=== PATIENT | male | born 1950 | race Caucasian/White ===

== ENCOUNTER 2019-03-27 09:45 | Emergency (ER) | payer MEDICARE, OTHER ==
[~2019-03-27] VITALS: Ht 175.3 cm; Wt 80.3 kg
[2019-03-27 10:15] LABS: BASO # 0.1 10^3/uL (0.0-0.2); BASO % 0.7 % (0.0-1.0); EOS # 0.1 10^3/uL (0.0-0.5); EOS % 1.3 % (0.0-3.0); HEMATOCRIT 44.1 % (42.0-52.0); HEMOGLOBIN 15.3 g/dl (13.5-17.5); LYMPH # 1.6 10^3/uL (1.5-5.0); LYMPH % 23.8 % (24.0-44.0); MEAN CORPUSCULAR HGB CONC 34.7 g/dl (32.0-36.5); MEAN CORPUSCULAR VOLUME 95.2 fl (80.0-96.0); MONO # 0.6 10^3/uL (0.0-0.8); MONO % 8.2 % (0.0-5.0); NEUTROPHILS # 4.4 10^3/uL (1.5-8.5); NEUTROPHILS % 65.7 % (36.0-66.0); PLATELET COUNT, AUTOMATED 301 10^3/uL (150-450); RED BLOOD COUNT 4.63 10^6/uL (4.30-6.10); WHITE BLOOD COUNT 6.7 10^3/uL (4.0-10.0)
[2019-03-27 10:25] LABS: INR 0.98; PROTHROMBIN TIME 12.7 SECONDS (11.8-14.0)
[2019-03-27] MEDS ORDERED: LISI2.5T76 PO (10:25)
[2019-03-27] MEDS ORDERED: DOXY1CAP60 PO (10:25)
[2019-03-27] MEDS ORDERED: LEVO25TA5 PO (10:25)
[2019-03-27 10:26] LABS: PARTIAL THROMBOPLASTIN TIME 29.2 SECONDS (25.0-38.4)
[2019-03-27] MEDS ORDERED: SIMV10TA2 PO (10:26)
--- NOTE | 2019-03-27 10:27 | REP ---
Single view chest: 03/27/2019. Indication: Chest pain. Comparison: None. Findings: The lungs are clear. There is no pleural effusion or pneumothorax. The cardiomediastinal silhouette is unremarkable. Impression: Clear lungs. Electronically Signed by Yobani Gomez DO 03/27/2019 10:18 A
--- NOTE | 2019-03-27 10:29 | ECGEPIP ---
[facility] - ED Test Date: 2019-03-27 Pat Name: HAMLET LEGGETT Department: Room: - Gender: Male [employer] Operator: dl : 1950 Requested By: Myles Glover Order Number: [id number] Reading MD: Nona Avelar Measurements Intervals Forbes Rate: 73 P: 79 DE: 157 QRS: 77 QRSD: 110 T: 65 QT: 364 QTc: 403 Interpretive Statements SINUS RHYTHM NO PRIOR Electronically Signed on 03-27-2019 10:29:07 EDT by Nona Avelar
--- NOTE | 2019-03-27 10:37 | REP ---
CT brain: 03/27/2019. Indication: Dizziness. Comparison: None. Findings: There is no acute intracranial hemorrhage, acute cortical infarction, mass effect, hydrocephalus or significant fluid within the visualized paranasal sinuses/mastoid air cells. Impression: No acute intracranial process. Electronically Signed by Yobani Gomez DO 03/27/2019 10:29 A
[2019-03-27 10:49] LABS: ALBUMIN 4.1 GM/DL (3.2-5.2); ALT/SGPT 20 U/L (12-78); BILIRUBIN,DIRECT 0.2 MG/DL (0.0-0.2); BILIRUBIN,TOTAL 0.9 MG/DL (0.2-1.0); BLOOD UREA NITROGEN 20 MG/DL (7-18); CALCIUM LEVEL 9.5 MG/DL (8.8-10.2); CARBON DIOXIDE LEVEL 28 MEQ/L (21-32); CHLORIDE LEVEL 106 MEQ/L (98-107); CK-MB VALUE MASS 3.4 NG/ML (<3.6); CPK CREATINE PHOSPHOKINASE 229 U/L (39-308); CREATININE FOR GFR 1.06 MG/DL (0.70-1.30); FREE T4 1.61 NG/DL (0.76-1.46); GLOMERULAR FILTRATION RATE > 60.0 (>49); GLUCOSE, FASTING 107 MG/DL (70-100); LIPASE 69 U/L (73-393); MB/CK RELATIVE INDEX 1.48 (< OR =4); NT-PRO BNP 401 PG/ML (<125); POTASSIUM SERUM 4.2 MEQ/L (3.5-5.1); SODIUM LEVEL 140 MEQ/L (136-145); THYROID STIMULATING HORMONE 0.406 uIU/ML (0.358-3.740); TOTAL PROTEIN 7.5 GM/DL (6.4-8.2); TROPONIN I < 0.02 NG/ML (< 0.10)
[2019-03-27] MEDS ORDERED: ISOVUE-370 76% 100ML VIAL (Q9967) As Ordered ONE (11:04)
[2019-03-27] MEDS ORDERED: SILD100T PO (11:38)
[2019-03-27] MEDS ORDERED: ZOCO80TA PO (11:38)
[2019-03-27] MEDS ORDERED: LEVO50TA5 PO (11:38)
[2019-03-27] MEDS ORDERED: DOXA1TAB41 PO (11:38)
[2019-03-27] MEDS ORDERED: LISI-538 PO (11:38)
--- NOTE | 2019-03-27 12:04 | REP ---
CT ANGIOGRAM OF THE CHEST: TECHNIQUE: Axial contrast enhanced images from the thoracic inlet to the upper abdomen using 100 mL Isovue 370 intravenous contrast material with multiplanar reformations. There is no CT evidence of pulmonary embolism. There is no thoracic aortic aneurysm or dissection. There is moderate atherosclerotic calcification of the thoracic aorta. The heart is not enlarged. There is no mediastinal, hilar, or chest wall lymphadenopathy. There is no pleural or pericardial effusion. No acute infiltrate is seen in either lung. There are diffuse degenerative changes of the spine. IMPRESSION: No evidence of pulmonary embolism or thoracic aortic dissection. Electronically Signed by Phillip Murray MD 03/28/2019 11:46 A
[2019-03-27 13:00] VITALS: BP 123/60
== END 2019-03-27 13:11 | disposition short-term general hospital (02) ==
LOC: M ED 09:45
DX: I20.0 Unstable angina (principal); I10 Essential (primary) hypertension; E78.5 Hyperlipidemia, unspecified; E07.9 Disorder of thyroid, unspecified; Z79.899 Other long term (current) drug therapy; Z79.890 Hormone replacement therapy; Z88.5 Allergy status to narcotic agent; Z88.8 Allergy status to other drugs, medicaments and biological substances; Z87.891 Personal history of nicotine dependence
CPT/HCPCS: 36415; 70450; 71045; 71275; 80048; 80076; 82550; 82553; 83690; 83880; 84439; 84443; 84484; 85025; 85610; 85730; 93005; 93041; 94760; 99291; Q9967

== ENCOUNTER → 2019-12-05 | Outpatient (REF) | payer MEDICARE, OTHER ==
[~2019-12-05] MED LIST: DOXA1TAB41 PO; DOXY1CAP60 PO; LEVO25TA5 PO; LEVO50TA5 PO; LISI-1034 PO; LISI-538 PO; SILD100T PO; SIMV10TA21 PO; ZOCO80TA PO
== END ==
LOC: M LAB REF 10:04
PROVIDERS: ATTEND Dermatology
DX: L90.5 Scar conditions and fibrosis of skin (principal); L57.8 Other skin changes due to chronic exposure to nonionizing radiation

== ENCOUNTER 2024-01-11 07:02 | Day surgery (SDC) | payer MEDICARE, OTHER ==
[~2024-01-11] VITALS: Ht 157.5 cm; Wt 73.0 kg
[~2024-01-11 07:02] MED LIST changes: +AMLO10TA PO; -DOXY1CAP60 PO; +DOXY50CA35 PO; +FURO20TA2 PO; -LISI-1034 PO; -LISI-538 PO; +LISI2.5T8 PO; +LISI20TA33 PO; +LISI40TA4 PO; +PRAV40TA2 PO; +SPIR50TA4 PO; +SYNT100T PO; +SYNT25TA PO
[2024-01-11] MEDS: NS 1,000 ML IV ONE (07:30)
[2024-01-11] MEDS ORDERED: propofoL 200 MG/20 ML VIAL As Ordered ONE (08:22)
[2024-01-11] MEDS ORDERED: ePHEDrine SULFATE 25 MG/5 ML(5MG/ML) SYRINGE As Ordered ONE (08:38)
[2024-01-11 08:55] VITALS: TEMP 96.5
[2024-01-11 09:15] VITALS: BP 119/61; O2SAT 96
== END 2024-01-11 09:35 | disposition home or self-care (01) ==
LOC: M OPP 07:02
PROVIDERS: ATTEND Surgery
DX: Z86.010 Personal history of colon polyps (principal); D12.6 Benign neoplasm of colon, unspecified; I10 Essential (primary) hypertension; E03.9 Hypothyroidism, unspecified; Z86.73 Personal history of transient ischemic attack (TIA), and cerebral infarction without residual deficits; Z87.891 Personal history of nicotine dependence; Z79.02 Long term (current) use of antithrombotics/antiplatelets; Z79.890 Hormone replacement therapy; Z79.899 Other long term (current) drug therapy; Z88.5 Allergy status to narcotic agent; Z88.6 Allergy status to analgesic agent